=== PATIENT | female | born 1965 | race Caucasian/White ===

== ENCOUNTER → 2016-08-23 | Outpatient (CLI) | payer OTHER ==
[~2016-08-23] MED LIST: ACET-763 PO; ASPI-611 PO; BIRTH CONTROL PO; CITA-49 PO; [UNRECOGNIZED DRUG - CODE] PO
== END ==
LOC: IMA 13:47
PROVIDERS: ATTEND Obstetrics & Gynecology
DX: D48.62 Neoplasm of uncertain behavior of left breast (principal); N64.59 Other signs and symptoms in breast; N64.89 Other specified disorders of breast; R92.2 Inconclusive mammogram
CPT/HCPCS: 76642; G0206

== ENCOUNTER → 2016-09-12 | Outpatient (CLI) | payer OTHER ==
[~2016-09-12] MED LIST changes: +LIDOCAINE 1% 30ml (STERI-PAK) ONE
== END ==
LOC: IMA 10:32
PROVIDERS: ATTEND Surgery
DX: C50.912 Malignant neoplasm of unspecified site of left female breast (principal); Z17.1 Estrogen receptor negative status [ER-]; R92.8 Other abnormal and inconclusive findings on diagnostic imaging of breast
CPT/HCPCS: 19083; G0206

== ENCOUNTER → 2016-09-22 | Outpatient (CLI) | payer OTHER ==
[~2016-09-22] MED LIST changes: +BIOT5TAB; -LIDOCAINE 1% 30ml (STERI-PAK) ONE; +LUTE10TA2 PO; +MULT-933 PO; +TRAM50TA53 PO
--- NOTE | 2016-09-22 14:44 | DI ---
Indication: ITS.REASON: C50.412 LEFT BREAST CA; C50.919 BREAST CA PROCEDURE: NM BONE SCAN, WHOLE BODY: Encounter: Subsequent Comparison: No relevant imaging comparison available. Technique: 27.4 mCi of Tc-99m MDP was administered intravenously. Anterior and posterior planar whole-body and spot images were obtained. FINDINGS: The scan demonstrates the expected normal biodistribution for the radiotracer. There is no abnormal radiotracer uptake to suggest bony metastasis. IMPRESSION: No evidence of metastatic disease to the skeleton. .
== END ==
LOC: IMA 10:20
PROVIDERS: ATTEND Internal Medicine Hematology & Oncology
DX: C50.412 Malignant neoplasm of upper-outer quadrant of left female breast (principal)
CPT/HCPCS: 78306; A9503

== ENCOUNTER 2016-09-29 10:55 | Day surgery (SDC) | payer OTHER ==
[~2016-09-29] VITALS: Ht 163.8 cm; Wt 72.2 kg
[2016-09-29] VITALS (9 sets, daily range): BP systolic 101–126; BP diastolic 54–66; PULSE 58–88; RESP 14–22; TEMP 98.6; O2SAT 96–100; Ht 163.8 cm; Wt 72.2 kg
[~2016-09-29 10:55] MED LIST changes: -ASPI-611 PO; -BIOT5TAB; -BIRTH CONTROL PO; +LR 1,000 ML IV SCH; -TRAM50TA53 PO; +VANCOMYCIN 1 G in NORMAL SALINE 250 ML IV ONE; -[UNRECOGNIZED DRUG - CODE] PO
[2016-09-29 11:45] LABS: BASOPHILS % (AUTO) 0.4 % (0-2); EOSINOPHILS # (AUTO) 0.1 T/MM3 (0-0.5); EOSINOPHILS % (AUTO) 2.6 % (0-4); HCT - HEMATOCRIT 43.1 % (36-46); IMMATURE GRANULOCYTE # (AUTO) 0.01 T/MM3 (0.00-0.03); IMMATURE GRANULOCYTE % (AUTO) 0.2 % (0.0-0.5); LYMPHOCYTES # (AUTO) 1.9 T/MM3 (1-4.8); LYMPHOCYTES % (AUTO) 35.6 % (23-45); MEAN CORPUSCULAR HGB 29.1 UUG (26-34); MEAN CORPUSCULAR HGB CONC(MCHC 32.5 GM/DL (31-37); MEAN CORPUSCULAR VOLUME 89.6 UM3 (80-100); MONOCYTES # (AUTO) 0.5 T/MM3 (0-0.8); MONOCYTES % (AUTO) 9.9 % (0-9.0); NEUTROPHILS #(AUTO)-ABSOLUTE 2.7 T/MM3 (1.8-7.7); NEUTROPHILS % (AUTO) 51.3 % (33-66); RED BLOOD COUNT 4.81 M/MM3 (4.00-5.20); WBC - WHITE BLOOD COUNT 5.3 T/MM3 (4.5-11.0)
[2016-09-29] MEDS ORDERED: BIOT5TAB (11:50)
[2016-09-29] MEDS ORDERED: LIDOCAINE 1% (10mg/ml) 2ml SDV INJ ONE (12:30)
--- NOTE | 2016-09-29 12:31 | ANESPREOP ---
Anesthesia Record Date and Time DATE: 09/29/16 TIME: 12:28 Proposed Surgical Procedure POWER PORT INSERTION NPO since: 2100 Allergies: Coded Allergies: cephalexin (Verified Allergy, Unknown, HIVES, 09/29/16) ciprofloxacin (Verified Adverse Reaction, Unknown, N/V, 09/29/16) erythromycin base (Verified Adverse Reaction, Unknown, N/V, 09/29/16) hydrocodone (Verified Adverse Reaction, Unknown, N/V, 09/29/16) sulfamethoxazole (Verified Adverse Reaction, Unknown, N/V, 09/29/16) trimethoprim (Verified Adverse Reaction, Unknown, N/V, 09/29/16) Ht/Wt/BMI Height: 5 ' 4.50 " Weight: 72.200 kg BMI: 26.9 kg/m2 Vital Signs Date Time Temp Pulse Resp B/P Pulse Ox O2 Delivery O2 Flow Rate FiO2 09/29/16 11:24 98.6 68 14 126/66 98 Room Air Medications Inpatient Medications Current Medications Medications (Trade) Dose Ordered Sig/Bassam Start Time Stop Time Status Last Admin Dose Admin Lactated Ringer's (Lactated Ringers) 1,000 ml @ 50 mls/hr Q20H 09/29/16 07:00 Acetaminophen/Dp-Hydram Hcl (Tylenol Pm Ex-Str Caplet) 1 Tab Tablet, 1 TAB PO HS PRN for SLEEP, (Reported) Last Taken: on 09/28/16 2200 Biotin (Biotin) 5 Mg Tablet, DAILY, (Reported) Last Taken: on 09/28/16 0930 Citalopram (Celexa) 20 Mg Tablet, 20 MG PO DAILY, (Reported) Last Taken: on 09/28/16929 Multivitamin (Multi-Day Vitamins) 1 Each Tablet , 1 TAB PO DAILY, (Reported) Last Taken: on 09/28/1630 Currently on Beta Felix: No Medical/Surgical History Anesthesia PMH: Reports: Anesthesia Reactions (PT HAS SEVERE MOTION SICKNESS/ CARSICK, NO AIRWAY ISSUES), Cancer (BREAST CANCER-LEFT), Hyperlipidemia, Other ( history of TMJ, 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 Symptoms worst on L>R side. ), Reflux (OCC. ) Smoking Status: Never smoker Use Chewing Tobacco?: No Second Hand Exposure: No Substance Use Type: does not use Alcohol Intake: none HX of Last Menstrual Period: PARTIAL HYST. Past Surgical History Orthopedic Surgeries: No Abdominal Surgeries: No Genitourinary Surgeries: No Cardiac Surgeries: No Endocrine Surgeries: No Reproductive Surgeries: Yes - L BREAST BIOPSY, PARTIAL HYST. Neurological Surgeries: No Ear Surgeries: No Nose Surgeries: No Throat Surgeries: No Other Surgeries: No Anesthesia Adverse Reactions: FOUND nausea and vomiting Family Hx of Anesthesia Advers: none Hx of Motion Sickness: No Pertinent Findings Laboratory Tests 09/29/16 11:35 Physical Exam Respiratory: Lungs clear Cardiovascular: FOUND Regular rate, rhythm Airway Assessment Mallampati Score: II TMD: 3 Fingerbreadths Neck Extension: Good Overall Assessment: No Airway Concerns (history of TMJ) ASA: 2 Discussion Discussed risks/options/alternatives of anesthesia and questions answered. Patient consents. Nursing pain assessment noted. Attestation Statement Prior to the delivery of any anesthetic medication, I examined the patient, developed the plan, obtained the patient's consent and discussed the risk and benefits of the procedure with the patient/guardian. AZALIA CAMPOS CRNA Sep 29, 2016 12:31
[2016-09-29] MEDS ORDERED: TRAM50TA53 PO (12:42)
[2016-09-29] MEDS ORDERED: PROPOFOL 500mg 50 ML IV ONE (13:34)
[2016-09-29] MEDS ORDERED: FENTANYL 100mcg/2ml INJECTION ONE (13:37)
[2016-09-29] MEDS ORDERED: BUPIVACAINE 0.25%/EPI 1:200,000 30ml SDV ONE (13:45)
[2016-09-29] MEDS ORDERED: SALINE FLUSH *Sterile Field* 10ml SYRINGE ONE (13:45)
[2016-09-29] MEDS ORDERED: PROPOFOL 200mg 20 ML IV ONE (14:48)
--- NOTE | 2016-09-29 15:15 | NUR ---
POST CHEST X RAY STATUS KIMMIE HANNAH APRN NOTIFIED VIA PHONE OF PATIENT CHEST XRAY RESULTS REPORTED BY RADIOLOGY STAFF. RN INSTRUCTED TO LET PATIENT EAT AND DRINK, AND DISMISS TO HOME.
--- NOTE | 2016-09-29 15:19 | DI ---
Indication: ITS.REASON: PORT INSERTION PROCEDURE: PORTACATH W FLUORO W 1V CXR: Encounter: Initial Comparison: None Findings: Right IJ approach central venous port catheter in place with the tip projecting over the mid SVC. No pneumothorax. Lungs are clear. The heart size, pulmonary vascularity and mediastinal contours are within normal limits. Impression: Right IJ port catheter as above. .
[2016-09-29] MEDS ORDERED: KETOROLAC 30mg/ml INJECTION IV PRN (15:30)
--- NOTE | 2016-09-29 15:43 | ANESPO ---
Post-Op Note Date 09/29/16 Time: 15:43 Status Pt Participated in Evaluation: Pt participated in person Vital Signs Date Time Temp Pulse Resp B/P Pulse Ox O2 Delivery O2 Flow Rate FiO2 09/29/16 11:24 98.6 68 14 126/66 98 Room Air Respiratory Function: Airway patent, Regular respirations Cardiovascular Function: Regular pulse Mental Status: Alert/oriented Pain Level Intensity: 0 Hydration: Taking po fluids Complications during Recovery None apparent Follow-Up Instructions Instructions Per Surgeon DANYELL LUO CRNA Sep 29, 2016 15:43
--- NOTE | 2016-09-30 09:03 | OPNOTEF ---
DATE OF SERVICE 09/29/2016 SURGEON Cornel Page MD PREOPERATIVE DIAGNOSIS Personal history for HER-2 positive breast cancer. Need for long-term central venous access to facilitate neoadjuvant chemotherapy. POSTOPERATIVE DIAGNOSIS Personal history for HER-2 positive breast cancer. Need for long-term central venous access to facilitate neoadjuvant chemotherapy. PROCEDURE Insertion of PowerPort catheter under sonographic and fluoroscopic guidance. ANESTHESIA TIVA/local. BRIEF HISTORY/INDICATIONS Mrs. Gonzalez is a 51-year-old female who recently was found to have a HER-2 positive breast cancer. It was recommended to the patient that she undergo neoadjuvant chemotherapy as a result of the above indications. Patient presents today to undergo placement of a PowerPort catheter to facilitate her upcoming chemotherapy. For completeness please refer to notes included in the patient's chart. DESCRIPTION OF PROCEDURE After informed consent was obtained, the patient was brought to the operative suite, placed on the table in supine fashion. The right lateral neck and anterior chest were then prepped and draped in a sterile fashion. First, the patient was placed in Trendelenburg position and ultrasonography was performed along the right lateral neck. One could see a round hypoechoic structure which collapsed with pressure applied via the ultrasound transducer. This corresponded with the internal jugular vein. Then, 0.25% Marcaine with epinephrine was injected overlying the anatomic location of the internal jugular vein. A Cook needle was then introduced through the area of analgesia and into the underlying internal jugular vein under sonographic guidance. A guidewire was advanced through the Cook needle and the Cook needle was then removed. Fluoroscopy was then performed which revealed the guidewire to be within the atrium and right ventricle. A 5 to 6 mm incision was then made adjacent to the exit site of the guidewire and extended out laterally. Additional 0.25% Marcaine with epinephrine was injected about two fingerbreadths below the right clavicle. A 3-cm incision was then made through the area of analgesia. A subcutaneous pocket was then created just inferior or caudad to this incision. A PowerPort reservoir was then brought forth into the operative field and placed within the subcutaneous pocket and subsequently imbricated to the underlying pectoralis fascia in a triangulated fashion by placing three simple interrupted sutures of 0 Prolene through the underlying pectoralis fascia and subsequently through the holes within the reservoir itself. The catheter was then tunneled between the two incisions. A dilator and tear-away sheath were then advanced over the guidewire. The guidewire and dilator were then removed. The catheter was then quickly advanced in the tear-away sheath and the tear-away sheath was then removed. Under fluoroscopy, the tip of the catheter was then placed near the junction between the superior vena cava and right atrium and cut to the appropriate length and subsequently attached to the PowerPort reservoir. The PowerPort reservoir was then accessed and was easily aspirated and flushed with heparinized saline. Both skin incisions were then closed in a subcuticular fashion with 4-0 Monocryl. The patient tolerated the procedure without difficulty. A postprocedure chest x-ray will be obtained postoperatively. The results of this film are pending at the time of dictation. ROLLY
== END 2016-09-29 16:20 | disposition home or self-care (01) ==
LOC: SCU 10:55
PROVIDERS: ATTEND Surgery
DX: Z45.2 Encounter for adjustment and management of vascular access device (principal); C50.912 Malignant neoplasm of unspecified site of left female breast; Z17.0 Estrogen receptor positive status [ER+]; F41.9 Anxiety disorder, unspecified; E78.00 Pure hypercholesterolemia, unspecified; Z79.899 Other long term (current) drug therapy; Z88.1 Allergy status to other antibiotic agents; Z88.2 Allergy status to sulfonamides; Z90.710 Acquired absence of both cervix and uterus; Z80.3 Family history of malignant neoplasm of breast
CPT/HCPCS: 36415; 36561; 77001; 85025; C1788; J1642; J1885; J2704; J3010; J3370; J7050; J7120